=== PATIENT | female | born 1955 | race Two or more races ===

== ENCOUNTER 2021-05-20 11:28 | Outpatient (CLI) | payer BC ==
[2021-05-20 12:02] LABS: ANION GAP 6 mmol/L (5-15); CALCIUM 9.3 mg/dL (8.5-10.1); CHLORIDE 106 mmol/L (98-107)
[2021-05-20 12:03] LABS: CREATININE 0.95 mg/dL (0.55-1.02)
== END 2021-05-20 23:59 | disposition home or self-care (01) ==
LOC: STAR 11:28
PROVIDERS: ATTEND Orthopaedic Surgery Hand Surgery
DX: Z01.812 Encounter for preprocedural laboratory examination (principal); Z01.818 Encounter for other preprocedural examination; Z01.89 Encounter for other specified special examinations; R79.1 Abnormal coagulation profile
CPT/HCPCS: 36415; 80048; 93005